=== PATIENT | male | born 1970 | race Caucasian/White ===

== ENCOUNTER → 2017-12-04 | Outpatient (CLI) | payer OTHER | LOC: BMCIMAGING 15:40 → EDSTATUS 15:41 | PROVIDERS: ATTEND Internal Medicine | DX: Z13.83 Encounter for screening for respiratory disorder NEC (principal) ==

== ENCOUNTER → 2018-03-01 | Outpatient (CLI) | payer OTHER | LOC: BMCIMAGING 13:54 → MERGE 13:54 | PROVIDERS: ATTEND Emergency Medicine | DX: M79.641 Pain in right hand (principal) ==